=== PATIENT | female | born 1965 | race Caucasian/White ===

== ENCOUNTER → 2018-02-25 | Outpatient (CLI) | payer BC ==
--- NOTE | 2018-02-25 11:36 | BD ---
EXAMINATION TYPE: MG DEXA axial skeleton. DATE OF EXAM: 02/25/2018 COMPARISON: NONE CLINICAL HISTORY: 52-year-old female postmenopausal screening, disorder of bone Height: 60.2 IN Weight: 116 LBS FRAX RISK QUESTIONS: Alcohol (3 or more units per day): NO Family History (Parent hip fracture): NO Glucocorticoids (More than 3mos): NO (Ex: prednisone, prednisolone, methylprednisolone, dexamethasone, and hydrocortisone). History of Fracture in Adulthood: NO Secondary Osteoporosis: 1. Type 1 Diabetes: NO 2. Hyperthyroidism: NO 3. Menopause before 45: AGE 43 4. Malnutrition: NO 5. Chronic liver disease: NO Rheumatoid Arthritis: NO Current Tobacco Use: YES RISK FACTORS HISTORY OF: Active: YES Postmenopausal woman: AGE 43 MEDICATIONS: Additional Medications: VIT D, B 12 EXAM MEASUREMENTS: Bone mineral densitometry was performed using the [employer] System. Bone mineral density as measured about the Lumbar spine is: ----- L1-L4(G/cm2): 1.297 T Score Values are as follows: ----- L2: 1.3 ----- L3: 1.5 ----- L4: 1.5 ----- L1-L4: 1.0 Bone mineral density BASELINE Bone mineral density about the R hip (g/cm2): 0.860 Bone mineral density about the L hip (g/cm2): 0.840 T Score values are as follows: -----R Neck: -1.3 -----L Neck: -1.4 -----R Total: -1.6 -----L Total: -1.6 Bone mineral density BASELINE IMPRESSION: Osteopenia (T Score between -2.5 and -1). There is slightly increased risk of fracture and the patient may be considered for treatment. Re-Screen 2-5 years. NOTE: T-SCORE=SD OF THE YOUNG ADULT MEAN.
--- NOTE | 2018-02-27 07:25 | MM ---
Reason for exam: screening (asymptomatic). Last mammogram was performed 7 years and 2 months ago. History: Patient is postmenopausal. Family history of breast cancer in maternal aunt at age 50 and breast cancer in maternal cousin at age 47. Physical Findings: A clinical breast exam by your physician is recommended on an annual basis and results should be correlated with mammographic findings. MG Screening Mammo w CAD Bilateral CC and MLO view(s) were taken. No prior studies available for comparison. The breast tissue is heterogeneously dense. This may lower the sensitivity of mammography. There is no discrete abnormality. ASSESSMENT: Negative, BI-RAD 1 RECOMMENDATION: Routine screening mammogram of both breasts in 1 year.
== END | disposition home or self-care (01) ==
LOC: RADMAMWWP 08:47
PROVIDERS: ATTEND Family Medicine
DX: Z12.31 Encounter for screening mammogram for malignant neoplasm of breast (principal); M85.80 Other specified disorders of bone density and structure, unspecified site; N95.1 Menopausal and female climacteric states
CPT/HCPCS: 77067; 77080

== ENCOUNTER → 2021-09-28 | Outpatient (CLI) | payer BC ==
[2021-09-28 19:50] LABS: Basophils # (A) 0.05 X 10*3/uL (0.00-0.10); Basophils % (A) 0.7 %; Eosinophils # (A) 0.08 X 10*3/uL (0.04-0.35); Eosinophils % (A) 1.1 %; HCT 45.7 % (37.2-46.3); HGB 15.5 g/dL (12.0-15.0); Lymphocytes # (A) 3.18 X 10*3/uL (0.90-5.00); Lymphocytes % (A) 43.3 %; MCH 32.6 pg (27.0-32.0); MCHC 33.9 g/dL (32.0-37.0); MCV 96.2 fL (80.0-97.0); Mean Platelet Volume 11.4 fL (9.5-12.2); Monocytes # (A) 0.44 X 10*3/uL (0.20-1.00); Neutrophils # (A) 3.59 X 10*3/uL (1.80-7.70); Neutrophils % (A) 48.8 %; Platelet Count 291 X 10*3/uL (140-440); RBC 4.75 X 10*6/uL (4.10-5.20); RDW 13.8 % (11.5-14.5); WBC 7.35 X 10*3/uL (4.50-10.00)
[2021-09-28 20:14] LABS: ALT 21 U/L (8-44); AST 23 U/L (13-35); African American GFR (CKD) 76.7 (60.0-200.0); Albumin 4.5 g/dL (3.8-4.9); Albumin/Globulin Ratio 1.62 (1.60-3.17); Alkaline Phosphatase 75 U/L (41-126); BUN/Creat Ratio 11.08 Ratio (12.00-20.00); Blood Urea Nitrogen 10.5 mg/dL (9.0-27.0); Calcium 9.7 mg/dL (8.7-10.3); Carbon Dioxide 25.2 mmol/L (21.6-31.8); Chloride 103 mmol/L (96-109); Globulin 2.8 g/dL (1.6-3.3); Glucose 92 mg/dL (70-110); Non-African American GFR(CKD) 66.2 (60.0-200.0); Potassium 4.6 mmol/L (3.5-5.5); Sodium 140 mmol/L (135-145); Total Protein 7.4 g/dL (6.2-8.2)
[2021-09-28 20:58] LABS: Testosterone <2.50 ng/mL (7.00-45.62)
[2021-09-28 22:01] LABS: Centromere Antibody <0.2 AI; Centromere Antibody Interp NEGATIVE (NEGATIVE); DNA Double-Stranded POSITIVE (NEGATIVE); Scleroderma SC-70 Ab <0.2 AI
== END | disposition home or self-care (01) ==
LOC: LABWHC1 12:32
PROVIDERS: ATTEND Family Medicine
DX: L65.0 Telogen effluvium (principal); J67.8 Hypersensitivity pneumonitis due to other organic dusts; E78.5 Hyperlipidemia, unspecified; R79.9 Abnormal finding of blood chemistry, unspecified
CPT/HCPCS: 36415; 80053; 82626; 83516; 84403; 84439; 84443; 84480; 85025; 86001; 86038; 86225; 86235; 86606; 86609

== ENCOUNTER → 2021-10-31 | Outpatient (CLI) | payer BC ==
--- NOTE | 2021-10-31 16:56 | US ---
EXAMINATION TYPE: US transvaginal DATE OF EXAM: 10/31/2021 COMPARISON: NONE CLINICAL HISTORY: N83.202 OVARIAN CYST OF LT SIDE. Patient has no pain TECHNIQUE: Transvaginal (TV). Transvaginal sonographic images were medically necessary to better as sess the following anatomy: Uterus Date of LMP: 2008 EXAM MEASUREMENTS: Uterus: 4.0x3.1 cm Endometrial Stripe: 0.2 cm Right Ovary: 0.9x0.8x1.3 cm Left Ovary: Not seen Large amount of bowel 1. Uterus: Anteverted wnl 2. Endometrium: 0.4cm of fluid 3. Right Ovary: wnl 4. Left Ovary: Not seen due to large amount of dilated loops of bowel 5. Bilateral Adnexa: Obscured by overlying bowel gas 6. Posterior cul-de-sac: wnl IMPRESSION: 1. Small amount of fluid within the endometrial canal. There is some limitation due to bowel.
== END | disposition home or self-care (01) ==
LOC: RADUSWWP 08:21
PROVIDERS: ATTEND Family Medicine
DX: N83.202 Unspecified ovarian cyst, left side (principal)
CPT/HCPCS: 76830

== ENCOUNTER → 2022-01-15 | Outpatient (CLI) | payer BC ==
--- NOTE | 2022-01-16 08:45 | MM ---
Reason for exam: screening (asymptomatic). Last mammogram was performed 3 years and 11 months ago. History: Patient is postmenopausal. Family history of breast cancer in maternal aunt at age 50 and breast cancer in maternal cousin at age 47. Physical Findings: A clinical breast exam by your physician is recommended on an annual basis and results should be correlated with mammographic findings. MG Screening Mammo w CAD Bilateral CC, MLO, and XCCL view(s) were taken. Prior study comparison: February 25, 2018, bilateral MG screening mammo w CAD. December 26, 2010, bilateral digital screening mammo w/CAD. There are scattered fibroglandular densities. There is chronic nodularity in the left breast. No significant changes when compared with prior studies. ASSESSMENT: Benign, BI-RAD 2 RECOMMENDATION: Routine screening mammogram of both breasts in 1 year.
== END | disposition home or self-care (01) ==
LOC: RADMAMWWP 07:45
PROVIDERS: ATTEND Family Medicine
DX: Z12.31 Encounter for screening mammogram for malignant neoplasm of breast (principal); Z80.3 Family history of malignant neoplasm of breast; Z78.0 Asymptomatic menopausal state
CPT/HCPCS: 77067

== ENCOUNTER → 2022-06-21 | Outpatient (CLI) | payer BC ==
[2022-06-21 14:50] LABS: Basophils # (A) 0.06 X 10*3/uL (0.00-0.10); Basophils % (A) 0.8 %; Eosinophils # (A) 0.13 X 10*3/uL (0.04-0.35); Eosinophils % (A) 1.7 %; HCT 49.3 % (37.2-46.3); HGB 16.3 g/dL (12.0-15.0); Immature Grans, Automated 0.3 %; Lymphocytes # (A) 2.31 X 10*3/uL (0.90-5.00); Lymphocytes % (A) 30.8 %; MCH 32.1 pg (27.0-32.0); MCHC 33.1 g/dL (32.0-37.0); MCV 97.2 fL (80.0-97.0); Mean Platelet Volume 12.2 fL (9.5-12.2); Monocytes % (A) 6.7 %; NRBC Per 100 WBC 0 /100 WBCS (0.0-0.0); Neutrophils # (A) 4.47 X 10*3/uL (1.80-7.70); Neutrophils % (A) 59.7 %; Platelet Count 255 X 10*3/uL (140-440); RBC 5.07 X 10*6/uL (4.10-5.20); RDW 13.6 % (11.5-14.5); WBC 7.49 X 10*3/uL (4.50-10.00)
[2022-06-21 15:15] LABS: ALT 32 U/L (8-44); AST 29 U/L (13-35); African American GFR (CKD) 81.7 (60.0-200.0); Albumin 4.7 g/dL (3.8-4.9); Albumin/Globulin Ratio 1.62 (1.60-3.17); Alkaline Phosphatase 82 U/L (41-126); BUN/Creat Ratio 17.78 Ratio (12.00-20.00); Calcium 9.9 mg/dL (8.7-10.3); Carbon Dioxide 26.4 mmol/L (20.0-27.5); Chloride 103 mmol/L (96-109); Chol/HDL Ratio 2.87 Ratio; Globulin 2.9 g/dL (1.6-3.3); Glucose 96 mg/dL (70-110); LDL Cholesterol,Calculated 125.8 mg/dL (0.0-131.0); Non-African American GFR(CKD) 70.5 (60.0-200.0); Sodium 141 mmol/L (135-145); Total Protein 7.6 g/dL (6.2-8.2)
[2022-06-21 16:51] LABS: Anti-Smith Ab Interp NEGATIVE (NEGATIVE); Centromere Antibody <0.2 AI; Centromere Antibody Interp NEGATIVE (NEGATIVE); Chromatin Antibody <0.2 AI; DNA Double-Stranded POSITIVE (NEGATIVE); JO-1 IgG Antibody <0.2 AI; Scleroderma SC-70 Ab <0.2 AI
[2022-06-23 06:20] LABS: ANA Pattern Speckled
== END | disposition home or self-care (01) ==
LOC: LABWHC1 07:25
PROVIDERS: ATTEND Family Medicine
DX: E78.2 Mixed hyperlipidemia (principal); R79.9 Abnormal finding of blood chemistry, unspecified; M54.12 Radiculopathy, cervical region
CPT/HCPCS: 36415; 80053; 80061; 83516; 84439; 84443; 85025; 86038; 86039; 86225; 86235

== ENCOUNTER → 2023-06-30 | Outpatient (CLI) | payer BC ==
--- NOTE | 2023-06-30 16:58 | CTL ---
EXAMINATION TYPE: CT Low Dose Lung DATE OF EXAM ORDERED: 06/30/2023 HISTORY: Nicotine dependence. Lung cancer screening CT DLP: 44.[address] CTDI: 1.2 mGy Automated exposure control for dose reduction was used. SCREENING VISIT: Initial COMPARISON: None TECHNIQUE: Low dose computed tomography scan was performed through the chest at 1 mm thick sections a nd reconstructed images in the coronal plane at [address] DIAGNOSTIC QUALITY: Satisfactory FINDINGS: LUNG NODULES: Present, detailed below: 1/ there is a 0.3 cm punctate posterior right apical nodule. Series 4 image 32. LUNGS: COPD: Severity: None Fibrosis: Severity: None Lymph nodes: None Other findings: None RIGHT PLEURAL SPACE: Effusion: None Calcification: None Thickening: None Pneumothorax: None LEFT PLEURAL SPACE: Effusion: None Calcification: None Thickening: None Pneumothorax: None HEART: Heart Size: Normal Coronary calcification: None Pericardial effusion: None OTHER FINDINGS: Upper abdomen: Normal Bony thorax: Normal Supraclavicular region: Normal Other: Ascending thoracic aorta at the level the main pulmonary artery measures 2.6 cm. The main pul monary artery at the bifurcation measures 2.3 cm. IMPRESSION: Benign findings FOLLOW UP CT CHEST RECOMMENDATION: Follow-up low-dose CT chest [address] LUNG RAD: Lung-Rad 2 Benign Appearance or Behavior
== END | disposition home or self-care (01) ==
LOC: RADCTMAIN 09:04
PROVIDERS: ATTEND Family Medicine
DX: Z12.2 Encounter for screening for malignant neoplasm of respiratory organs (principal); F17.210 Nicotine dependence, cigarettes, uncomplicated
CPT/HCPCS: 71271

== ENCOUNTER → 2023-07-17 | Outpatient (CLI) | payer BC ==
--- NOTE | 2023-07-17 11:25 | BD ---
EXAMINATION TYPE: Axial Bone Density DATE OF EXAM: 07/17/2023 CLINICAL HISTORY: 57 years old Female. ICD-10 CODE: M89.9 DISORDER OF BONE Height: 60.2 Weight: 103 FRAX RISK QUESTIONS: Glucocorticoids (More than 3mos): yes (Ex: prednisone, prednisolone, methylprednisolone, dexamethasone, and hydrocortisone). Current Tobacco Use: yes RISK FACTORS HISTORY OF: Postmenopausal woman: yes, 47 yrs Hyperparathyroidism: no Adrenal Insufficiency: no MEDICATIONS: Prednisone or other steroids: yes, for copd, for many yrs Thyroid Medications: yes, synthroid for about 2 yrs Additional Medications: vit d, Additional History: thyroid, copd EXAM MEASUREMENTS: Bone mineral densitometry was performed using the [employer] System. Bone mineral density as measured about the Lumbar spine is: ----- L1-L4(G/cm2): 1.214 T Score Values are as follows: ----- L1: -18 ----- L2: 0.1 ----- L3: 0.8 ----- L4: 1.4 ----- L1-L4: 0.3 Z Score Values are as follows: ----- L1: 0.0 ----- L2: 1.9 ----- L3: 2.6 ----- L4: 3.2 ----- L1-L4: 2.1 Bone mineral density has: Decreased -6.4% since study of: 05.28.2018 Bone mineral density about the R hip (g/cm2): 0.728 Bone mineral density about the L hip (g/cm2): 0.754 T Score values are as follows: -----R Neck: -1.8 -----L Neck: -1.9 -----R Total: -2.2 -----L Total: -2.0 Z Score values are as follows: -----R Neck: -0.2 -----L Neck: -0.3 -----R Total: -0.9 -----L Total: -0.7 Bone mineral density has: Decreased -8.3% since study of: 02.25.2018 FRAX%s: The graph provided illustrates a 13.7% chance for a major osteoporotic fx and a 3.4% chance f or the hips probability for fx in 10 years time. IMPRESSION: Osteopenia (T Score between -2.5 and -1). There is slightly increased risk of fracture and the patient may be considered for treatment. Re-Screen 2-5 years. NOTE: T-SCORE=SD OF THE YOUNG ADULT MEAN.
--- NOTE | 2023-07-18 08:31 | MM ---
Reason for Exam: Screening (asymptomatic). Last mammogram was performed 1 year(s) and 6 month(s) ago. Patient History: Menarche at age 11. First Full-Term at age 25. Postmenopausal. Maternal cousin had breast cancer, age 47. Maternal aunt had breast cancer, age 50. Risk Values: Nay 5 year model risk: 1.5%. NCI Lifetime model risk: 8.3%. Prior Study Comparison: 12/26/2010 Bilateral Screening Mammogram, [facility]. 02/25/2018 Bilateral Screening Mammogram, [facility]. 01/15/2022 Bilateral Screening Mammogram, [facility]. Tissue Density: The breast tissue is heterogeneously dense. This may lower the sensitivity of mammography. Findings: Analyzed By CAD. Pattern appears symmetrical and stable. Focal asymmetries in the posterior outer left breast unchanged from comparison. No suspicious groups of microcalcifications, spiculated or lobular masses, architectural distortion or other secondary signs of malignancy are mammographically apparent. Overall Assessment: Benign, BI-RAD 2 Management: Screening Mammogram of both breasts in 1 year. A negative mammogram report should not preclude additional follow up of suspicious palpable abnormalities. Patient should continue monthly self breast exam. A clinical breast exam by your physician is recommended on an annual basis and results should be correlated with mammographic findings. Electronically signed and approved by: Jerry Ghosh D.O. Radiologis
== END | disposition home or self-care (01) ==
LOC: RADMAMWWP 10:20
PROVIDERS: ATTEND Family Medicine
DX: Z12.31 Encounter for screening mammogram for malignant neoplasm of breast (principal); M85.89 Other specified disorders of bone density and structure, multiple sites; Z78.0 Asymptomatic menopausal state; Z80.3 Family history of malignant neoplasm of breast
CPT/HCPCS: 77067; 77080

== ENCOUNTER → 2023-10-14 | Outpatient (CLI) | payer BC ==
[2023-10-14 10:45] LABS: Basophils # (A) 0.04 X 10*3/uL (0.00-0.10); Basophils % (A) 0.6 %; Eosinophils # (A) 0.13 X 10*3/uL (0.04-0.35); Eosinophils % (A) 1.9 %; HCT 46.5 % (37.2-46.3); HGB 16.2 g/dL (12.0-15.0); Lymphocytes % (A) 30.7 %; MCH 33.1 pg (27.0-32.0); MCHC 34.8 g/dL (32.0-37.0); MCV 95.1 FL (80.0-97.0); Mean Platelet Volume 9.9 FL (9.5-12.2); Monocytes % (A) 5.8 %; NRBC Per 100 WBC 0 X 10*3/uL (0.00-0.01); Neutrophils # (A) 4.17 X 10*3/uL (1.80-7.70); Neutrophils % (A) 60.9 %; Platelet Count 303 X 10*3/uL (140-440); RBC 4.89 X 10*6/uL (4.10-5.20); WBC 6.85 X 10*3/uL (4.50-10.00)
[2023-10-14 11:12] LABS: Blood Urea Nitrogen 16.6 mg/dL (9.0-27.0); C Reactive Protein <0.30 mg/dL (0.00-0.80); Calcium 9.8 mg/dL (8.7-10.3); Carbon Dioxide 25.4 mmol/L (21.6-31.8); Chloride 103 mmol/L (96-109); Glucose 102 mg/dL (70-110); Potassium 4.5 mmol/L (3.5-5.5); Rheumatoid Factor, Qnt <15 IU/mL (0-15); Sodium 140 mmol/L (135-145)
[2023-10-14 11:52] LABS: Erythrocyte Sedimentation Rate 13 mm/Hr (0-30)
[2023-10-14 12:41] LABS: Cardiolipin Ab IgG Interp Negative (Negative); Cardiolipin Ab IgM Interp Positive (Negative); Cardiolipin IgA Antibody 42.2 U/mL; Cardiolipin IgM Antibody 84.7 U/mL; DNA Double-Stranded POSITIVE
[2023-10-14 15:28] LABS: Appearance,Urine Clear (Clear); Bilirubin,Urine Negative (Negative); Blood,Urine Negative (Negative); Color,Urine Light Yellow; Glucose,Urine (UA) Negative (Negative); Ketones,Urine Negative (Negative); Leukocyte Esterase,Urine Negative (Negative); Nitrite,Urine Negative (Negative); PH, Urine 5.5 (5.0-8.0); Protein,Urine Negative (Negative); Specific Gravity,Urine 1.018 (1.001-1.035); Urobilinogen,Urine <2.0 mg/dL (<2.0)
[2023-10-14 15:34] LABS: Creatinine,Urine Random 111.3 mg/dL
[2023-10-14 16:34] LABS: Cyclic Citrull Pep IgG Unit <1.5 U/mL (<=3.9); Cyclic Citrullinated Pep IgG Negative
[2023-10-15 11:54] LABS: APTT 60 Sec(s) (<43); APTT 1:1 Mix 47 Sec(s) (<43); DRVVT 1:1 Mix 41 Sec(s) (<44); Dilute Russell Viper Venom 46 Sec(s) (<44); Hexagonal Phase Neutralization Negative (Negative)
== END | disposition home or self-care (01) ==
LOC: LABWHC1 07:30
PROVIDERS: ATTEND Internal Medicine Rheumatology
DX: M32.9 Systemic lupus erythematosus, unspecified (principal); D68.61 Antiphospholipid syndrome
CPT/HCPCS: 36415; 80048; 81001; 81003; 82570; 83520; 84156; 85025; 85613; 85652; 85730; 86140; 86147; 86160; 86162; 86200; 86225; 86431

== ENCOUNTER 2024-01-01 08:14 | Emergency (ER) | payer BC ==
[2024-01-01] MEDS ORDERED: KETOROLAC 15 MG/ML 1 ML VIAL IM STA (08:33)
[2024-01-01] MEDS ORDERED: ORPHENADRINE 30 MG/ML 2 ML VIAL IM STA (08:33)
--- NOTE | 2024-01-01 09:02 | XR ---
EXAMINATION TYPE: XR lumbar spine 2 or 3V DATE OF EXAM: 01/01/2024 8:51 AM CLINICAL INDICATION:Female, 58 years old with history of pain; [facility] COMPARISON: None TECHNIQUE: XR lumbar spine 2 or 3V - Frontal, lateral and coned in L5-S1 lateral views of the spine. FINDINGS: No evidence of any acute osseous pathology. No evidence of loss of vertebral body height i s seen. There is normal alignment of the lumbar vertebral bodies. Mild scattered disc space narrowing . Multilevel marginal osteophyte formation throughout the visualized spine. There is facet joint arth ropathy throughout the spine. Scattered at least mild neural foraminal stenosis worse at L5-S1 with a t least mild to moderate. This course of the arterial vasculature. IMPRESSION: 1. No acute fracture. 2. Mild to moderate multilevel disc degeneration.
[2024-01-01] MEDS ORDERED: MORPHINE SULFATE 4 MG/ML SYRINGE IM STA (09:29)
--- NOTE | 2024-01-01 09:36 | ED ---
General Adult HPI - General Chief complaint: Back Pain/Injury Stated complaint: LEG AND BACK PAIN Time Seen by Provider: 01/01/24 08:17 Source: patient, RN notes reviewed Mode of arrival: ambulatory Limitations: no limitations - History of Present Illness Initial comments: Patient is a 58-year-old female presented to the emergency room today with a chief complaint of left-sided back pain with radiation down the back of the left leg. Patient does admit that symptoms started approximately 4 to 5 days ago. Denies any specific injury or trauma. 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 Patient denies any bowel or bladder incontinence or retention. Denies any saddle anesthesia. She does admit that this pain is worse with certain movements. Is been tried a muscle relaxer and Tylenol at home has had little relief. Patient denies any other complaints or symptoms. Patient denies any recent fever, chills, shortness of breath, chest pain, abdominal pain, nausea or vomiting, headaches or visual changes, or any other complaints. - Related Data Previous Rx's Medication Instructions Recorded HYDROcodone/APAP 5-325MG [[place] 1 tab PO Q6HR PRN 3 Days #12 tab 01/01/24 5-325] Ibuprofen [Motrin] 600 mg PO Q6HR PRN #40 day 01/01/24 predniSONE [Deltasone] 20 mg PO BID 5 Days #10 tab 01/01/24 Allergies Allergy/AdvReac Type Severity Reaction Status Date / Time No Known Allergies Allergy Verified 01/01/24 08:18 Review of Systems ROS Statement: Those systems with pertinent positive or pertinent negative responses have been documented in the HPI. ROS Other: All systems not noted in ROS Statement are negative. Past Medical History Past Medical History: Thyroid Disorder Past Surgical History: No Surgical Hx Reported Smoking Status: Current every day smoker General Exam - General Exam Comments Initial Comments: General: The patient is awake and alert, in no distress, and does not appear acutely ill. Eye: Extra-ocular movements are intact. There is normal conjunctiva bilaterally. No signs of icterus. Ears, nose, mouth and throat: There are moist mucous membranes and no oral lesions. Cardiovascular: There is a regular rate and rhythm. Respiratory: Lungs are clear to auscultation, respirations are non-labored, breath sounds are equal. No wheezes, stridor, rales, or rhonchi. Gastrointestinal: Soft nontender. Musculoskeletal: Patient normal appearance of thoracic and lumbar spine with no step-off or deformity. No tenderness midline. Patient does have tenderness left lower lumbar paravertebrally and into the SI joint. Pain reproduced with movement of turning, twisting. Neurological: A&O x 3. CN II-XII intact, There are no obvious motor or sensory deficits. Coordination appears grossly intact. Speech is normal. Skin: Skin is warm and dry and no rashes or lesions are noted. Psychiatric: Cooperative, appropriate mood & affect, normal judgment. Limitations: no limitations Course Vital Signs 01/01/24 08:15 Temperature 98 F Pulse Rate 110 H Respiratory 20 Rate Blood Pressure 142/71 O2 Sat by Pulse 99 Oximetry Medical Decision Making - Medical Decision Making History was obtained from patient/Nurse/Family/ Initial assessment and chief complaint: Back pain Chronic conditions affecting care: Thyroid disease Social determinants affecting care: None Differential diagnosis included, but not limited to: Muscle strain, lumbar radiculopathy, disc herniation Any imaging that may have been performed was also reviewed. I did an independent interpretation of the patient's imaging. My interpretation of x-ray was reviewed and does show arthritic changes. 58-year-old female presented to the emergency room today with a chief complaint of left-sided back pain. Does have her radicular symptoms going down the back of the left leg. No bowel or bladder incontinence or retention. No saddle anesthesia. Patient x-rays were reviewed showing arthritic changes. No other acute abnormality. Patient given pain medication, muscle relaxer here in the emergency room. Does have a muscle laxer at home. Prescription for anti- inflammatory, steroid, and short prescription of pain medication given for patient. Advised close follow-up with the PCP/orthopedics. Vies return if symptoms increase or worsen or for any other concerns. States understanding and is in agreement. Disposition Clinical Impression: Acute low back pain Disposition: HOME SELF-CARE Condition: Good Instructions (If sedation given, give patient instructions): Acute Low Back Pain (ED) Additional Instructions: Please use medication as discussed. Please follow-up with family doctor/orthopedics in the next 2 days. Please return to emergency room if the symptoms increase or worsen or for any other concerns. Prescriptions: predniSONE [Deltasone] 20 mg PO BID 5 Days #10 tab Ibuprofen [Motrin] 600 mg PO Q6HR PRN #40 day PRN Reason: Pain HYDROcodone/APAP 5-325MG [[place] 5-325] 1 tab PO Q6HR PRN 3 Days #12 tab PRN Reason: Pain Is patient prescribed a controlled substance at d/c from ED?: Yes If prescribed controlled substance>3 days was MAPS reviewed?: Prescribed <3 Days Referrals: Sydney Perez MD [Primary Care Provider] - 1-2 days Time of Disposition: 09:36
[2024-01-01 10:06] VITALS: RESP 18
[2024-01-01 10:41] VITALS: BP 136/74; PULSE 107; TEMP 97.9
== END 2024-01-01 10:20 | disposition home or self-care (01) ==
LOC: EC 08:14
DX: M51.36 Other intervertebral disc degeneration, lumbar region (principal); F17.200 Nicotine dependence, unspecified, uncomplicated
CPT/HCPCS: 72100; 99283; 96372 ×3; J2270; J2360; J1885

== ENCOUNTER → 2024-03-12 | Outpatient (CLI) | payer BC ==
[2024-03-12 11:24] LABS: Basophils # (A) 0.08 X 10*3/uL (0.00-0.10); Basophils % (A) 1.1 %; Eosinophils # (A) 0.29 X 10*3/uL (0.04-0.35); HCT 46.2 % (37.2-46.3); Lymphocytes # (A) 2.15 X 10*3/uL (0.90-5.00); Lymphocytes % (A) 29.5 %; MCH 32.9 pg (27.0-32.0); MCHC 34.6 g/dL (32.0-37.0); MCV 94.9 FL (80.0-97.0); Mean Platelet Volume 10.4 FL (9.5-12.2); Monocytes # (A) 0.55 X 10*3/uL (0.20-1.00); Monocytes % (A) 7.5 %; NRBC Per 100 WBC 0 X 10*3/uL (0.00-0.01); Neutrophils # (A) 4.21 X 10*3/uL (1.80-7.70); Neutrophils % (A) 57.8 %; Platelet Count 215 X 10*3/uL (140-440); RBC 4.87 X 10*6/uL (4.10-5.20); RDW 14.1 % (11.5-14.5); WBC 7.29 X 10*3/uL (4.50-10.00)
[2024-03-12 11:33] LABS: Creatinine,Urine Random 184.7 mg/dL; Protein/Creatinine Ratio,Urine 0.032
[2024-03-12 11:51] LABS: C Reactive Protein <0.30 mg/dL (0.00-0.80)
[2024-03-12 11:56] LABS: ALT 26 U/L (8-44); AST 33 U/L (13-35); BUN/Creat Ratio 14.44 Ratio (12.00-20.00); Calcium 9.9 mg/dL (8.7-10.3); Chloride 106 mmol/L (96-109); Glucose 96 mg/dL (70-110); Potassium 4.5 mmol/L (3.5-5.5); Sodium 141 mmol/L (135-145)
[2024-03-12 13:35] LABS: Erythrocyte Sedimentation Rate 14 mm/Hr (0-30)
[2024-03-12 14:03] LABS: DNA Double-Stranded Indetermin (Negative)
[2024-03-12 14:08] LABS: Appearance,Urine Clear (Clear); Bilirubin,Urine Negative (Negative); Blood,Urine Negative (Negative); Color,Urine Yellow (Yellow); Ketones,Urine Negative (Negative); Nitrite,Urine Negative (Negative); PH, Urine 5.5; Specific Gravity,Urine 1.022 (1.001-1.030); Urobilinogen,Urine 0.2 E.U./DL
== END | disposition home or self-care (01) ==
LOC: LABWHC1 07:30
PROVIDERS: ATTEND Internal Medicine Rheumatology
DX: M32.9 Systemic lupus erythematosus, unspecified (principal)
CPT/HCPCS: 36415; 80048; 81003; 82570; 84156; 84450; 84460; 85025; 85652; 86140; 86160; 86162; 86225

== ENCOUNTER → 2024-07-19 | Outpatient (CLI) | payer BC ==
--- NOTE | 2024-08-06 20:21 | MM ---
Reason for Exam: Screening (asymptomatic). Last screening mammogram was performed 12 month(s) ago. Patient History: Menarche at age 11. First Full-Term at age 25. Postmenopausal. Maternal cousin had breast cancer, age 47. Maternal aunt had breast cancer, age 50. Risk Values: Nay 5 year model risk: 1.6%. NCI Lifetime model risk: 8.1%. Prior Study Comparison: 02/25/2018 Bilateral Screening Mammogram, [facility]. 01/15/2022 Bilateral Screening Mammogram, [facility]. 07/17/2023 Bilateral MG screening mammo w CAD, [facility]. Tissue Density: The breasts are heterogeneously dense, which may obscure small masses. Findings: Analyzed By CAD. Chronic nodularity on the left. Areas of asymmetric density are also unchanged. There is no suspicious group of microcalcifications or new suspicious mass in either breast. Overall Assessment: Benign, BI-RAD 2 Management: Screening Mammogram of both breasts in 1 year. . Patient should continue monthly self-breast exams. A clinical breast exam by your physician is recommended on an annual basis. This exam should not preclude additional follow-up of suspicious palpable abnormalities. Note on Nay scores and lifetime risk: 1. A Nay score greater than 3% is considered moderate risk. If this is the case, consider specialist referral to assess eligibility for a risk reducing agent. 2. If overall lifetime risk for the development of breast cancer is 20% or higher, the patient may qualify for future screening with alternating mammogram and breast MRI. Electronically signed and approved by: Carmen Delgado M.D. Radiologist
== END | disposition home or self-care (01) ==
LOC: RADMAMWWP 14:07
PROVIDERS: ATTEND Family Medicine
DX: Z12.31 Encounter for screening mammogram for malignant neoplasm of breast
CPT/HCPCS: 77067

== ENCOUNTER → 2025-01-24 | Outpatient (CLI) | payer BC ==
--- NOTE | 2025-01-24 07:36 | USB ---
Reason for Exam: Clinical finding. Patient History: Menarche at age 11. First Full-Term at age 25. Postmenopausal. Maternal cousin had breast cancer, age 47. Maternal aunt had breast cancer, age 50. Risk Values: Nay 5 year model risk: 1.6%. NCI Lifetime model risk: 7.9%. Technique: Method: Targeted. Prior Study Comparison: 01/15/2022 Bilateral Screening Mammogram, [facility]. 07/17/2023 Bilateral MG screening mammo w CAD, [facility]. 07/19/2024 Bilateral MG screening mammo w CAD, [facility]. Findings: The upper outer quadrant of the right breast, the axilla of the right breast and the retroareolar of the right breast were scanned. Technique utilized:US breast limited RT Image; Ultrasound imaging of: All 4 quadrants, the retroareolar region and axilla. Few dilated ducts in the retroareolar region. No suspicious masses. No evidence for organizing fluid collection. Overall Assessment: Benign, BI-RAD 2 Management: Screening Mammogram of both breasts in 6 months. A clinical breast exam by your physician is recommended on an annual basis and results should be correlated with mammographic findings. This exam should not preclude additional follow-up of suspicious palpable abnormalities. Results were given to the patient verbally at the time of exam. [facility], , 01/24/2025 7:30 AM. Electronically signed and approved by: Addison Cifuentes DO
== END | disposition home or self-care (01) ==
LOC: RADUSWWP 06:56
PROVIDERS: ATTEND Family Medicine
DX: N63.10 Unspecified lump in the right breast, unspecified quadrant (principal); Z78.0 Asymptomatic menopausal state; Z80.3 Family history of malignant neoplasm of breast

== ENCOUNTER → 2025-03-15 | Outpatient (CLI) | payer BC ==
[2025-03-15 15:01] LABS: Basophils # (A) 0.08 X 10*3/uL (0.00-0.10); Basophils % (A) 1.1 %; Eosinophils # (A) 0.22 X 10*3/uL (0.04-0.35); HCT 48.2 % (37.2-46.3); HGB 16.1 g/dL (12.0-15.0); Lymphocytes # (A) 2.26 X 10*3/uL (0.90-5.00); Lymphocytes % (A) 30.5 %; MCH 32.5 pg (27.0-32.0); MCHC 33.4 g/dL (32.0-37.0); MCV 97.2 FL (80.0-97.0); Mean Platelet Volume 10.4 FL (9.5-12.2); Monocytes # (A) 0.51 X 10*3/uL (0.20-1.00); Monocytes % (A) 6.9 %; NRBC Per 100 WBC 0 X 10*3/uL (0.00-0.01); Neutrophils # (A) 4.32 X 10*3/uL (1.80-7.70); Neutrophils % (A) 58.4 %; Platelet Count 314 X 10*3/uL (140-440); RBC 4.96 X 10*6/uL (4.10-5.20); RDW 13.1 % (11.5-14.5)
[2025-03-15 15:17] LABS: ALT 21 U/L (8-44); AST 26 U/L (13-35); Blood Urea Nitrogen 13.4 mg/dL (9.0-27.0); C Reactive Protein <0.30 mg/dL (0.00-0.80); Calcium 9.9 mg/dL (8.7-10.3); Carbon Dioxide 25.1 mmol/L (21.6-31.8); Chloride 111 mmol/L (96-109); Glucose 93 mg/dL (70-110); Potassium 5.2 mmol/L (3.5-5.5); Sodium 149 mmol/L (135-145)
[2025-03-15 16:03] LABS: Appearance,Urine Clear (Clear); Bilirubin,Urine Negative (Negative); Blood,Urine Negative (Negative); Color,Urine Yellow (Yellow); Ketones,Urine Negative (Negative); Nitrite,Urine Negative (Negative); Specific Gravity,Urine 1.018 (1.001-1.030); Urobilinogen,Urine 0.2 E.U./DL
[2025-03-15 16:13] LABS: Bacteria,Urine None Seen (None Seen)
[2025-03-15 16:30] LABS: Erythrocyte Sedimentation Rate 10 mm/Hr (0-30)
[2025-03-15 21:09] LABS: DNA Double-Stranded Indetermin (Negative)
== END | disposition home or self-care (01) ==
LOC: LABWHC1 07:37
PROVIDERS: ATTEND Internal Medicine Rheumatology
DX: M32.9 Systemic lupus erythematosus, unspecified (principal)
CPT/HCPCS: 36415; 80048; 81001; 84450; 84460; 85025; 85652; 86140; 86160; 86162; 86225